=== PATIENT | male | born 1950 | race Two or more races ===

== ENCOUNTER 2019-08-17 19:46 | Emergency (ER) | payer SELFPAY ==
[~2019-08-17] VITALS: Ht 167.6 cm; Wt 60.0 kg
[2019-08-17 19:52] VITALS: BP 184/90
[2019-08-17] MEDS ORDERED: SODIUM CHLORIDE 0.9% 1,000 ML IV ONE (21:02)
== END 2019-08-17 21:23 | disposition left against medical advice (07) ==
LOC: ER 19:46
DX: S00.03XA Contusion of scalp, initial encounter (principal); F10.229 Alcohol dependence with intoxication, unspecified; I10 Essential (primary) hypertension; E11.9 Type 2 diabetes mellitus without complications; Y90.9 Presence of alcohol in blood, level not specified; W01.0XXA Fall on same level from slipping, tripping and stumbling without subsequent striking against object, initial encounter; Y93.89 Activity, other specified; Y92.018 Other place in single-family (private) house as the place of occurrence of the external cause
CPT/HCPCS: 99283; J7030